=== PATIENT | male | born 1955 | race Caucasian/White ===

== ENCOUNTER 2022-12-12 10:57 | Outpatient (CLI) | payer MEDICARE, OTHER ==
--- NOTE | 2022-12-12 13:14 | XRAY Report ---
PROCEDURE: Lumbar Spine 2 View INDICATIONS: LOWER BACK PAIN TECHNIQUE: 2 views of the lumbar spine were acquired. COMPARISON: None. FINDINGS: Bones: 5 [id number] vertebrae are present. There is normal bony alignment. There is a wedge-sh aped L1 compression fracture with 50% anterior height loss noted. No suspicious bony lesions. Disc s pace narrowing and anterior osteophytes noted in the mid lumbar spine. Sclerotic facet joints noted i n the mid to lower lumbar spine Soft tissues: Overlying bowel gas pattern is normal. 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
--- NOTE | 2022-12-12 17:53 | XRAY Report ---
PROCEDURE: Hips 2V BILAT INDICATIONS: BILATERAL HIP PAIN TECHNIQUE: Frontal view of the pelvis and lateral views of both hips COMPARISON: None FINDINGS: Bones: No fractures or dislocations. No suspicious bony lesions. The visualized pelvic ring appear s intact. Mild degenerative changes of both hips. Soft tissues: No suspicious soft tissue calcifications or masses. IMPRESSION: 1. No acute fracture or dislocation visualized. 2. Mild degenerative changes of both hips. Reviewed by: Josué Orozco MD on 12/12/2022 5:51 PM PST Approved by: Josué Orozco MD on 12/12/2022 5:51 PM PST Station ID: [id number]
== END 2022-12-12 10:58 | disposition home or self-care (01) ==
LOC: DI 10:57
PROVIDERS: ATTEND Student in an Organized Health Care Education/Training Program
DX: M48.56XA Collapsed vertebra, not elsewhere classified, lumbar region, initial encounter for fracture (principal); M51.36 Other intervertebral disc degeneration, lumbar region; M47.816 Spondylosis without myelopathy or radiculopathy, lumbar region; M16.0 Bilateral primary osteoarthritis of hip

== ENCOUNTER 2023-03-09 15:18 | Outpatient (CLI) | payer MEDICARE, OTHER ==
[2023-03-09 16:18] VITALS: BP 118/60
--- NOTE | 2023-03-09 16:18 | SLEEP CARE CONSULTATION ---
Information from patient questionnaire entered by Rachel Reyes. I have reviewed and concur with the information entered by Rachel Reyes. This document represents the service I personally performed and the decisions made by me, Eyad Castro MD, [facility]. History of Present Illness Service Date and Time: 03/09/2023 1518 Chief Complaint: reports: Other (REFERRAL DUE TO BLOOD PRESSURE ) Date of Onset: 2YRS Usual bedtime: 930PM Time it takes to fall asleep: 15MINS Snores at night: Yes Observed to quit breathing while asleep: Yes Sleeps alone due to snoring: Yes Number of times waking at night: 2-3 Reasons for waking at night: reports: Choking, Gasping for air, Bathroom Toss, Turn, or Twitch while sleeping: Yes Recalls having dreams: Yes Usually gets out of bed at: 6AM Feels refreshed in the morning: No Morning headache: Yes (1-2 HRS) Sleepy or fatigued during the day: Yes Ever fallen asleep while driving: No Takes day naps: Yes Dreams during day naps: No Prior sleep studies: Yes Year and Where: [place] 2012 Additional HPI information: I had the pleasure of seeing Mr. Rutherford today regarding obstructive sleep apnea- hypopnea. As you know, he is a 67-year-old gentleman who was diagnosed 10 years ago at the [facility]. His AHI was 10 and edmar oxygen saturation,88%. According to him, he was prescribed a BiPAP, which he used for about 6 years. He quit because it fell of a shelf and broke. He did notice significant improvement on the treatment. He wore a full face mask. His equipment came from [employer]. Since then he gained 30 lbs. He now snores loudly, wakes up feeling tired, and experiences excessive daytime sleepiness. His blood pressure also remains high despite being on 3 medications. - Parasomnia Symptoms Ever been unable to move upon waking from sleep: No Walks in sleep: No Talks in sleep: Yes Ever acted out dreams in sleep: No Ever felt weak in the knees when startled or emotional: No Bothered by creepy, crawly, restless sensations in legs: Yes Problems with memory or concentration: Yes Subjective Initial [place] Sleepiness Scale score: 12 (03/06/23) Past Medical History Past Medical History: reports: Hypertension, Arthritis, Coronary Heart Disease Social History The patient's occupation is a N. Patient is and lives in [place]. Have you smoked in the past 12 months: No Years of smokin Quit date: 2006 Alcohol use: Yes Alcohol amount and frequency: 2-3BEERS A MONTH Caffeine use: Yes Caffeine amount and frequency: 1 CUP IN THE MORNING Family History Family history of sleep disordered breathing: Yes Family Hx Sleep Apnea: Sibling: Snoring, Sleep apnea - Treated Allergies and Home Medications Known drug allergies: No Drug allergies reviewed: Yes Home medication list reviewed: Yes Review of Systems Cardiovascular: reports: high blood pressure Respiratory: reports: shortness of breath Gastrointestinal: denies: heartburn, difficulty swallowing, nausea, vomitting, diarrhea, abdominal pain, other Urinary: reports: frequency Neurological: reports: headaches Psychiatric: reports: anxiety Ear/Nose/Throat: reports: nasal congestion, dry mouth/throat Endocrine: reports: sluggishness Musculoskeletal: reports: muscle pain or cramping Immunologic: reports: sneezing Physical Exam Vital signs obtained and entered by: RACHEL Aguirre MA Blood Pressure: 118/60 (LEFT ARM) Cuff size: regular Heart Rate: 68 O2 Saturation: 92 Height: 5 ft 7 in Weight: 230 lb Body Mass Index: 36.0 BMI Classification: Obese Neck circumference: 18.25 Mood/affect: Normal HEENT: No craniofacial malformation Nostrils: patent to airflow Turbinates: normal Septum: midline Soft palate: long Hard palate: normal Uvula: normal Uvula visualization: 25% Mallampati Class III Tongue: normal in size Tonsils: small Chin and jaw: normal size and position Neck: normal w/o lymphadenopathy or thyromegaly Heart: regular rate and rhythm Lungs: clear bilaterally Extremities: no edema or clubbing Neurologic: intact Impression and Plan IMPRESSION: 1. Obstructive Sleep Apnea-Hypopnea Syndrome, mild, as previously diagnosed but most likely more severe now given the significant weight gain. He appears to be symptoms for loud snore, frequent awakenings, unrefreshed sleep, morning headache, and excessive daytime sleepiness. Obstructive sleep apnea- hypopnea can also cause high blood pressure. I recommend repeating the in- laboratory polysomnography to confirm the diagnosis and to assess the severity. I informed the patient of what the sleep studies involve and after some discu ssion, he agreed to proceed. Plan: 1. Schedule polysomnography and return in 1 to 2 weeks after the study to discuss result and initiate therapy. 2. Avoid long distance driving or when feeling sleepy. 3. Avoid alcohol, sedative and muscle relaxant around bedtime. 4. Attempt to lose weight. Counseling Topics: Weight control Follow up with Sleep Care in: 1-2 months Visit Type: In Office Other Participants: Spouse/Significant Other Time Spent with Patient (minutes): 15 Provider Statement: I spent 100% of the Face to Face Visit with the patient with greater than 50% spent counseling the patient and coordination of care.
== END 2023-03-09 15:19 | disposition home or self-care (01) ==
LOC: SC 15:18
PROVIDERS: ATTEND Internal Medicine Pulmonary Disease
DX: G47.33 Obstructive sleep apnea (adult) (pediatric) (principal); E66.9 Obesity, unspecified; Z68.36 Body mass index [BMI] 36.0-36.9, adult; Z87.891 Personal history of nicotine dependence
CPT/HCPCS: 99202; G0463; 99212

== ENCOUNTER 2023-03-30 19:20 | Outpatient (CLI) | payer MEDICARE, OTHER | END 2023-03-30 19:21 | disposition home or self-care (01) | LOC: SC 19:20 | PROVIDERS: ATTEND Internal Medicine Pulmonary Disease | DX: G47.33 Obstructive sleep apnea (adult) (pediatric) (principal); G47.61 Periodic limb movement disorder | CPT/HCPCS: 95810 ==

== ENCOUNTER 2023-04-22 14:17 | Outpatient (CLI) | payer MEDICARE, OTHER ==
--- NOTE | 2023-04-22 14:55 | Sleep Patient Instructions ---
Sleep Center Visit Summary - Patient Visit Information Reason for Visit: Sleep study followup - Patient Instructions Additional Instructions: You will be completing a titration sleep study in our sleep lab where you will be sleeping with the CPAP machine on and we will be adjusting your pressures to find your optimal pressure settings. Once we have your results back, we will call you and schedule a follow up to go over the results. You will be called by our office staff to schedule your follow up, but you may contact us with any questions or issue as needed. - Clinic Information Contact: [facility] [address] [place] [address] [email or web address] T: [phone]
--- NOTE | 2023-04-22 15:01 | SLEEP CARE CONSULTATION ---
Information from patient questionnaire entered by Yesy Reyes. I have reviewed and concur with the information entered by Yesy Reyes. This document represents the service I personally performed and the decisions made by , Ania Elizabeth ARNP. History of Present Illness Service Date and Time: 04/22/2023 1417 Accompanied by: Spouse (Nai) Initial [place] Sleepiness Scale score: 12 Current [place] Sleepiness Scale score: 13 (04/22/23) Additional HPI information: LISANDRA SESAY returns for follow up and results of the recently performed polysomnography. His PSG showed moderate obstructive sleep apnea with an AHI of 17.2 and severe PLMs not contributing to his sleep fragmentation. I explained the pathophysiology behind obstructive sleep apnea. We then spent quite a bit of time discussing different treatment options. For mild obstructive sleep apnea, surgery and oral appliance are alternatives to nasal CPAP therapy but in moderate or severe cases, nasal CPAP is the most effective and reliable treatment. I reviewed the impact of weight changes on sleep apnea and strongly recommended losing weight. After some discussion, the patient would like to continue with PAP treatment. He used to be on a BIPAP before it broke in 2019. A manual titration study will be ordered to find optimal pressure. Patient was cautioned about risks of drowsy driving until sleepiness symptoms resolve. Sleep Study - Results Type of Sleep Study: Polysomnography (COMPLETED 03/30/23) Prior sleep studies: Yes Year and Where: [place] 2012 Polysomnography/Home Sleep Study results: IMPRESSION: The quality of the study is good. The patient had reduced sleep efficiency. The sleep architecture was abnormal for sleep fragmentation and reduced amount of time spent in REM and slow wave sleep (N3). Respiratory monitoring showed moderate obstructive sleep apnea-hypopnea (AHI = 17.2) associated with frequent arousals, oxyhemoglobin desaturation and mild hypoxia (edmar oxygen saturation of 83%). The patient did not sleep supine during this study. Snore was light in intensity. There was severe periodic leg movement of sleep not contributing to the sleep fragmentation. Cardiac rhythm was normal sinus rhythm with occasional premature ventricular contractions No abnormal behavior (parasomnia) observed during the night. Allergies and Home Medications Known drug allergies: No Drug allergies reviewed: Yes Home medication list reviewed: Yes (no changes) Review of Systems Review of systems same as previous: Yes (no changes) Physical Exam Vital signs obtained and entered by: YESY Aguirre MA Blood Pressure: 126/68 (LEFT ARM) Cuff size: regular Heart Rate: 57 O2 Saturation: 95 Height: 5 ft 7 in Weight: 223 lb 3.2 oz Body Mass Index: 34.9 BMI Classification: Obese Impression and Plan 1. Obstructive Sleep Apnea-Hypopnea Syndrome, moderate, with lowest oxygen saturation of 83%. Obviously this is the cause of the patients symptoms of unrefreshed sleep, and excessive daytime sleepiness. Positive pressure therapy could benefit hypertension. Patient used to be on a BiPAP machine. I thinks he needs to come back for a titration study to determine right PAP machine and effective pressure needed for his current severity of sleep apnea. 2. Hypoxemia, mild, with a edmar oxygen saturation of 83% and 20 minutes spent under 90%. His baseline oxygen saturation was normal with an average oxygen saturation of 90%. 3. Periodic limb movement, severe, that did not fragment patients sleep. Periodic limb movement of sleep (PLMS) is characterized by episodes of repetitive limb movements that occur during sleep and usually involve the lower limbs. The etiology is unknown. Caffeine can also aggravate PLMS and should be avoided. Sleep hygiene methods can also improve sleep as well as lifestyle changes such as regular exercise. Patient was advised that no treatment is needed at this time. If symptoms increase, then further evaluation is indicated. * Titration study * Attempt to lose weight. * Avoid alcohol consumption near bedtime. * The patient is again cautioned about driving until sleepiness completely resolves. * Return after titration study. Counseling Topics: Weight loss health impact Visit Type: In Office Time Spent with Patient (minutes): 20 Provider Statement: I spent 100% of the Face to Face Visit with the patient with greater than 50% spent counseling the patient and coordination of care.
[2023-04-22 15:03] VITALS: BP 126/68
== END 2023-04-22 14:18 | disposition home or self-care (01) ==
LOC: SC 14:17
PROVIDERS: ATTEND Nurse Practitioner Family
DX: G47.33 Obstructive sleep apnea (adult) (pediatric) (principal); R09.02 Hypoxemia; G47.61 Periodic limb movement disorder; E66.9 Obesity, unspecified; Z68.34 Body mass index [BMI] 34.0-34.9, adult
CPT/HCPCS: 99213; G0463; 99212

== ENCOUNTER 2023-06-09 19:29 | Outpatient (CLI) | payer MEDICARE, OTHER | END 2023-06-09 19:30 | disposition home or self-care (01) | LOC: SC 19:29 | PROVIDERS: ATTEND Nurse Practitioner Family | DX: G47.33 Obstructive sleep apnea (adult) (pediatric) (principal); G47.61 Periodic limb movement disorder | CPT/HCPCS: 95811 ==

== ENCOUNTER 2023-09-04 13:28 | Outpatient (CLI) | payer MEDICARE, OTHER ==
--- NOTE | 2023-09-04 14:17 | Sleep Patient Instructions ---
Sleep Center Visit Summary - Patient Visit Information Reason for Visit: First compliance visit for CPAP therapy - Patient Instructions Additional Instructions: You were here for follow up of CPAP therapy. You will be continued on CPAP therapy with pressure at 8 cmH2O. You should follow up with sleep care in 3 months. You may contact us sooner for any questions or concerns. - Clinic Information Contact: [facility] [address] [place] [address] [email or web address] T: [phone]
--- NOTE | 2023-09-04 14:32 | SLEEP CARE CONSULTATION ---
Information from patient questionnaire entered by Rachel Reyes. I have reviewed and concur with the information entered by Rachel Reyes. This document represents the service I personally performed and the decisions made by me, Ania Elizabeth ARNP. History of Present Illness Service Date and Time: 09/04/2023 1328 Previous diagnosis: Moderate, Obstructive Sleep Apnea-Hypopnea Syndrome AHI: 17.2 (in 2012) Reason for follow up: first compliance (SET UP 06/24/23) Accompanied by: Spouse Equipment type: CPAP (RESMED Airsense 11, s/u 05/2023) Equipment obtained from: Other ([facility]; getting supplies as needed) Mask style: Full face Backup mask available: No (will keep old mask when replaced) Last cushion change: over a month Prior sleep studies: Yes Year and Where: 2012 Type of Sleep Study: Polysomnography (TITRATION STUDY F/U 06/09/23) HPI additional information: LISANDRA SESAY was diagnosed to have moderate, AHI 17.2, obstructive sleep apnea- hypopnea syndrome and returned today for CPAP therapy first compliance follow- up. Sleep Study - Results Type of Sleep Study: Polysomnography (TITRATION STUDY F/U 06/09/23) Prior sleep studies: Yes Year and Where: [place] 2012 CPAP Compliance Data - Data Reviewed with Patient Average duration of nightly device use: 7 HRS 19 MINS Compliance rate %: 93 (08/03/23-09/01/23; 29/30 days used) Current pressure setting (cmH2O): 8 Average residual AHI: 0.6 Central apnea: 0.2 Obstructive apnea: 0.1 Hypopnea: 0.2 Average large leak: 11.3 L/min Subjective Missed days of use due to: reports: illness (had Covid) Patient concerns: reports: dry mouth, nose, throat (dry mouth). denies: aerophagia, mask discomfort, air blowing in eyes, mask leak noise, condensation in mask/hose, nasal congestion, epistaxis Observed to snore while using device: No Current pressure setting perceived as: comfortable On therapy, patient: reports: sleeping better, awakening more refreshed, being more awake and alert during the day, more rested overall. denies: drowsiness while driving Initial [place] Sleepiness Scale score: 12 Current [place] Sleepiness Scale score: 11 (09/04/23) Allergies and Home Medications Known drug allergies: No Drug allergies reviewed: Yes Home medication list reviewed: Yes (no changes) Review of Systems Review of systems same as previous: No (COVID IN ) Physical Exam Vital signs obtained and entered by: RACHEL Aguirre MA Blood Pressure: 120/60 (LEFT ARM) Cuff size: regular Heart Rate: 61 O2 Saturation: 93 Height: 5 ft 7 in (PER PT) Weight: 223 lb 6.4 oz Body Mass Index: 34.9 BMI Classification: Obese Impression and Plan 1. Obstructive Sleep Apnea-Hypopnea Syndrome, moderate, with good treatment compliance and good apnea control. On CPAP therapy, the patient has better sleep quality and is more rested overall. He states everything is going well and he is using the CPAP comfortably. He did have Covid which affected his starting the CPAP but is compliant with its use. He gets a little dry mouth but this is not all the time and is probably due to his mouth coming open sometimes in the mask. He voiced understanding. Patient's apnea severity and rationale for treatment to reduce apnea, improve sleep quality and reduce cardiovascular and cerebrovascular events was reviewed. I also reviewed the benefit of consistent device use of CPAP for hypertension. 2. Obesity, unspecified. Currently patients BMI is 34.9. Obesity increases the risk of apnea, CPAP pressure requirements and overall health risks especially cardiovascular and diabetes. Thus patient is advised to lose weight. * Continue CPAP pressure at 8 cmH2O * Notify me if snoring with mask or feeling that the pressure is too much or too little * Attempt to lose weight * Call this office if any problems using CPAP * Return for follow up in 3 months, or sooner if concerns arise Counseling Topics: Spare mask, Weight loss health impact Follow up with Sleep Care in: 3 months Visit Type: In Office Time Spent with Patient (minutes): 24 Provider Statement: I spent 100% of the Face to Face Visit with the patient with greater than 50% spent counseling the patient and coordination of care.
[2023-09-04 14:45] VITALS: BP 120/60; O2SAT 93
== END 2023-09-04 13:29 | disposition home or self-care (01) ==
LOC: SC 13:28
PROVIDERS: ATTEND Nurse Practitioner Family
DX: G47.33 Obstructive sleep apnea (adult) (pediatric) (principal); E66.9 Obesity, unspecified; Z68.34 Body mass index [BMI] 34.0-34.9, adult
CPT/HCPCS: 99213; G0463; 99212

== ENCOUNTER 2023-12-04 14:02 | Outpatient (CLI) | payer MEDICARE, OTHER ==
--- NOTE | 2023-12-04 14:31 | Sleep Patient Instructions ---
Sleep Center Visit Summary - Patient Visit Information Reason for Visit: 3 month follow up - Patient Instructions Additional Instructions: You were here for follow up of CPAP therapy. You will be continued on CPAP therapy with pressure at 8 cmH2O. You should follow up with sleep care in 6 months. You may contact us sooner for any questions or concerns. - Clinic Information Contact: [facility] [address] [place] [address] [email or web address] T: [phone]
--- NOTE | 2023-12-04 14:35 | SLEEP CARE CONSULTATION ---
Information from patient questionnaire entered by Rachel Reyes. I have reviewed and concur with the information entered by Rachel Reyes. This document represents the service I personally performed and the decisions made by , Ania Elizaebth ARNP. History of Present Illness Service Date and Time: 12/04/2023 1402 Previous diagnosis: Moderate, Obstructive Sleep Apnea-Hypopnea Syndrome AHI: 17.2 Reason for follow up: three month (F/U) Accompanied by: Spouse Equipment type: CPAP (RESMED Airsense 11, s/u ) Equipment obtained from: Other ([facility]; getting supplies) Mask style: Full face Backup mask available: Yes Last cushion change: 1 month Prior sleep studies: Yes Year and Where: [place] 2012 Type of Sleep Study: Polysomnography (TITRATION STUDY F/U 06/09/23) HPI additional information: LISANDRA SESAY was diagnosed to have moderate, AHI 17.2, obstructive sleep apnea- hypopnea syndrome and returned today for CPAP therapy three month follow-up. Sleep Study - Results Type of Sleep Study: Polysomnography (TITRATION STUDY F/U 06/09/23) Prior sleep studies: Yes Year and Where: [place] 2012 CPAP Compliance Data - Data Reviewed with Patient Average duration of nightly device use: 6 HRS 52 MINS Compliance rate %: 92 (09/03/23-12/01/23; 88/90 days used) Current pressure setting (cmH2O): 8 Average residual AHI: 0.8 Central apnea: 0.1 Obstructive apnea: 0.4 Average large leak: 9.9 L/min Subjective Missed days of use due to: reports: other (up with who has dementia) Patient concerns: reports: dry mouth, nose, throat (occasional). denies: aerophagia, mask discomfort, air blowing in eyes, mask leak noise, condensation in mask/hose, nasal congestion, epistaxis Observed to snore while using device: No Current pressure setting perceived as: comfortable On therapy, patient: reports: sleeping better, awakening more refreshed, being more awake and alert during the day, more rested overall. denies: drowsiness while driving Initial [place] Sleepiness Scale score: 12 Current [place] Sleepiness Scale score: 13 (12/04/23) Allergies and Home Medications Known drug allergies: No Drug allergies reviewed: Yes Home medication list reviewed: Yes (no changes) Review of Systems Review of systems same as previous: Yes (NO CHANGE) Physical Exam Vital signs obtained and entered by: RACHEL Aguirre MA Blood Pressure: 150/71 (LEFT ARM) Cuff size: regular Heart Rate: 47 O2 Saturation: 95 Height: 5 ft 7 in (PER PT) Weight: 229 lb Body Mass Index: 35.9 BMI Classification: Obese Impression and Plan 1. Obstructive Sleep Apnea-Hypopnea Syndrome, moderate, with good treatment compliance and good apnea control. On CPAP therapy, the patient has better sleep quality and is more rested overall. Patient has significant improvement of their sleep apnea and is satisfied with current CPAP therapy. He is getting some dry mouth but thinks the water chamber is running out of water occasionally. He may also be oral venting and we discussed using a chinstrap. He can reach out to his DME supplier for this or obtain one on his own. Patient's apnea severity and rationale for treatment to reduce apnea, improve sleep quality and reduce cardiovascular and cerebrovascular events was reviewed. I also reviewed the benefit of consistent device use of CPAP for hypertension. 2. Obesity, unspecified. Currently patients BMI is 35.9. Obesity increases the risk of apnea, CPAP pressure requirements and overall health risks especially cardiovascular and diabetes. Thus patient is advised to lose weight. * Continue CPAP pressure at 8 cmH2O * Notify me if snoring with mask or feeling that the pressure is too much or too little * Attempt to lose weight * Call this office if any problems using CPAP * Return for follow up in 6 months, or sooner if concerns arise Counseling Topics: Spare mask, Weight loss health impact Follow up with Sleep Care in: 3 months Visit Type: In Office Time Spent with Patient (minutes): 20 Provider Statement: I spent 100% of the Face to Face Visit with the patient with greater than 50% spent counseling the patient and coordination of care.
[2023-12-04 14:44] VITALS: BP 150/71; O2SAT 95
== END 2023-12-04 14:03 | disposition home or self-care (01) ==
LOC: SC 14:02
PROVIDERS: ATTEND Nurse Practitioner Family
DX: G47.33 Obstructive sleep apnea (adult) (pediatric) (principal); E66.9 Obesity, unspecified; Z68.35 Body mass index [BMI] 35.0-35.9, adult
CPT/HCPCS: 99213; G0463; 99212